=== PATIENT | male | born 1980 | race Caucasian/White ===

== ENCOUNTER 2022-07-21 13:10 | Emergency (ER) | payer BC ==
[~2022-07-21] VITALS: Ht 175.3 cm; Wt 102.3 kg
[2022-07-21 13:14] VITALS: TEMP 98.8
[2022-07-21 15:05] VITALS: BP 138/97; PULSE 71
== END 2022-07-21 15:05 | disposition home or self-care (01) ==
LOC: COL.ER 13:10
DX: M25.562 Pain in left knee (principal); X50.1XXA Overexertion from prolonged static or awkward postures, initial encounter

== ENCOUNTER → 2022-11-13 | Outpatient (CLI) | payer BC ==
[~2022-11-13] VITALS: Ht 175.3 cm; Wt 107.5 kg
== END ==
LOC: DIET.TELE 15:07
DX: R63.5 Abnormal weight gain (principal); E66.8 Other obesity; Z68.35 Body mass index [BMI] 35.0-35.9, adult
CPT/HCPCS: 98972